=== PATIENT | male | born 1965 | race Two or more races ===

== ENCOUNTER 2020-12-18 17:28 | Inpatient (IN) | payer OTHER ==
[~2020-12-18] VITALS: Ht 175.3 cm; Wt 75.9 kg
[2020-12-18] MEDS ORDERED: IV NORMAL SALINE 1000ML BAG 1,000 ML IV ONE (18:30)
--- NOTE | 2020-12-18 18:39 | PHYS DOC ---
Past Medical History Past Medical History: No Pertinent History Past Surgical History: No Surgical History Smoking Status: Never Smoker Alcohol Use: None Drug Use: None General Adult EDM: Chief Complaint: SYNCOPE HPI: HPI: Patient is a 55 year old male who presents to the ED complaining of syncopal episode that occurred today at 7 AM. Patient reports that he had dizziness, lightheadedness, and mild blurred vision and sat down in a chair before he lost consciousness briefly. 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 Patient did not fall or hit his head. After the episode the patient left work and went home and drove by himself to the ED today. Patient does not reports any known medical problems and does not take any current medications. Patient denies chest pain, shortness of breath, fever, or chills. Patient does report that he has had a cough for the last week, but denies any exposure to COVID-19 recently. Patient does report he has tested positive in the past (end of October). Patient denies any tobacco use, alcohol use, or illicit drug use. Review of Systems: Review of Systems: Constitutional: Denies fever or chills Eyes: Denies redness or eye pain HENT: Denies nasal congestion or sore throat Respiratory: Reports cough; denies shortness of breath Cardiovascular: Denies chest pain or palpitations GI: Denies abdominal pain, nausea, or vomiting : Denies dysuria or hematuria Musculoskeletal: Denies back pain or joint pain Integument: Denies rash or skin lesions Neurologic: Denies headache, focal weakness or sensory changes; reports syncopal episode Complete systems were reviewed and found to be within normal limits, except as d ocumented in this note. Current Medications: Current Medications Medications (Trade) Dose Ordered Sig/Ximena Start Time Stop Time Status Last Admin Dose Admin Sodium Chloride 1,000 ml @ 1,000 mls/hr 1X ONCE 12/18/20 18:30 12/18/20 19:29 UNV Physical Exam: PE: Constitutional: Well developed, well nourished, no acute distress, non-toxic appearance HENT: Normocephalic, atraumatic Eyes: PERRL, EOMI, conjunctiva normal, no discharge, no nystagmus Neck: Normal range of motion, no tenderness, supple Lungs & Thorax: No respiratory distress, equal chest rise and fall Abdomen: Soft, no tenderness Skin: Warm, dry, no erythema, no rash Extremities: No tenderness, ROM intact, no edema Neurologic: Alert and oriented X 3, normal motor function, normal sensory function, no focal deficits noted Psychologic: Affect normal, judgment normal EKG: EKG: December 18, 2020 1824, normal sinus rhythm heart rate of 63, J-point elevation noted, no STEMI, QRS 78, QT/QTc 414/427. Compared with EKG from December 18, 2020 at 1708. No significant changes. [] Radiology/Procedures: Radiology/Procedures: PROCEDURE: CT HEAD WO CONTRAST STUDY: CT head without contrast INDICATION: Syncope. COMPARISON: None. TECHNIQUE: Axial CT imaging through the head without the use of intravenous contrast. Sagittal and coronal reformats were obtained. One or more of the following individualized dose reduction techniques were utilized for this examination: 1. Automated exposure control 2. Adjustment of the mA and/or kV according to patient size 3. Use of iterative reconstruction technique. FINDINGS: No acute intracranial hemorrhage. No mass effect, midline shift or hydrocephalus. Toney-white matter differentiation is maintained. Unremarkable calvarium. No layering fluid seen within the visualized paranasal sinuses. Unremarkable mastoid air cells and middle ears. IMPRESSION: No acute intracranial abnormality by CT. Electronically signed by: BLADE GASCA MD (12/18/2020 7:11 PM) [facility] []PROCEDURE: CHEST AP ONLY Exam: Chest one view INDICATION: Syncope, cough TECHNIQUE: Frontal view of the chest Comparisons: None FINDINGS: The cardiomediastinal silhouette and pulmonary vessels are within normal limits. Subtle hazy bibasilar airspace disease. No pleural effusion. IMPRESSION: Subtle bibasilar airspace disease may relate to atelectasis or developing infectious process. Electronically signed by: Chadwick Odonnell MD (12/18/2020 7:33 PM) [facility] PROCEDURE: CT ANGIOGRAPHY CHEST Exam: CT of chest with contrast INDICATION: Short of air, cough TECHNIQUE: Sequential axial images through the chest obtained following the administration of 100 mL of Isovue-370 IV contrast. Sagittal and coronal reformatted images were reconstructed from the axial data and reviewed. 3-D reformatted images were reconstructed from the axial data and reviewed. Comparisons: Chest x-ray same day FINDINGS: Visual is portions of the thyroid are unremarkable. No enlarged mediastinal lymph nodes. Heart size is normal. No pericardial effusion. Thoracic aorta has a normal course and caliber. Pulmonary artery is not enlarged. No pulmonary embolus identified within the main, lobar or segmental pulmonary arteries. Airways are patent. No consolidation or pneumothorax. Strandy opacities at dependent portion lungs likely representing atelectasis. No pleural effusion or thickening. Visualized upper abdomen is unremarkable. No suspicious osseous lesions or acute fractures. IMPRESSION: No pulmonary embolus within the main, lobar or segmental pulmonary arteries. Exposure: One or more of the following in the visualized dose reduction techniques were utilized for this examination: 1. Automated exposure control 2. Adjustment of the MA and/or KV according to patient size 3. Use of iterative of reconstructive technique Electronically signed by: Chadwick Odonnell MD (12/18/2020 10:17 PM) [facility] Course & Med Decision Making: Course & Med Decision Making Patient is a 55 year old male who presents to the ED complaining of syncopal episode that occurred today at 7 AM. Patient reports that he had syncopal episode he had dizziness, lightheadedness, and mild blurred vision and sat down in a chair before he lost consciousness briefly. Patient's labs are significant for D-dimer slightly elevated at 0.54 all other labs are unremarkable. Due to the patient's elevated D-dimer and past history of COVID-19, CT angio was ordered in order to rule out PE or other acute pulmonary process. Patient EKG stable. Patient CT head was negative and patient's chest x-ray showed bibasilar opacities which could indicate atelectasis or underlying infection. CT angio showed no pulmonary embolism or other acute pathology. Patient requiring admission for further evaluation and treatment. Discussed with Dr. Looney (hospitalist) who is in agreement with admission. Discussed findings and plan with patient and family, who acknowledge understanding and agreement. Dragon Disclaimer: Marc Disclaimer: This electronic medical record was generated, in whole or in part, using a voice recognition dictation system. Departure Departure Impression: Primary Impression: Syncope Qualified Codes: R55 - Syncope and collapse Additional Impression: Elevated d-dimer Disposition: 09 ADMITTED INPT THIS HOSP Admitting Physician: MARIANNE (Aayush) Condition: STABLE Referrals: NON,STAFF (PCP) SIENNA ADDISON DO Dec 18, 2020 18:39
--- NOTE | 2020-12-18 18:44 | EKG ---
[facility] [address] [place] [address] Test Date: 2020-12-18 Test Time: 18:21:45 Pat Name: KOREY RUDOLPH Department: Room: Gender: M Real Estate Manager: : 1965 Requested By: SIENNA ADDISON Order Number: [id number] Reading MD: Measurements Intervals [place] Rate: 63 P: -22 LA: 142 QRS: 3 QRSD: 78 T: 38 QT: 414 QTc: 427 Interpretive Statements SINUS RHYTHM OTHERWISE NORMAL ECG RI6.02 No previous ECG available for comparison
[2020-12-18 18:57] LABS: BASO % 0 % (0-3); EOS # 0.1 x10^3/uL (0.0-0.7); EOS % 2 % (0-3); HEMATOCRIT 44.4 % (39.0-53.0); HEMOGLOBIN 15.3 g/dL (13.0-17.5); LYMPH # 1.5 x10^3/uL (1.0-4.8); LYMPH % 30 % (24-48); MEAN CORPUSCULAR HEMOGLOBIN 32 pg (25-35); MEAN CORPUSCULAR HGB CONC 34 g/dL (31-37); MEAN CORPUSCULAR VOLUME 93 fL (79-100); MONO # 0.3 x10^3/uL (0.0-1.1); MONO % 6 % (0-9); NEUT % 61 % (31-73); PLATELET COUNT 144 x10^3/uL (140-400); RED BLOOD COUNT 4.78 x10^6/uL (4.30-5.70); RED CELL DISTRIBUTION WIDTH 13.7 % (11.5-14.5); WHITE BLOOD COUNT 4.9 x10^3/uL (4.0-11.0)
[2020-12-18 19:04] LABS: CALCIUM 8.4 mg/dL (8.5-10.1); CREATININE 0.9 mg/dL (0.7-1.3); GFR 88.3; POTASSIUM 3.6 mmol/L (3.5-5.1)
[2020-12-18 19:09] LABS: ALBUMIN 4.1 g/dL (3.4-5.0); ALBUMIN/GLOBULIN RATIO 1.1 (1.0-1.7); TOTAL BILIRUBIN 0.7 mg/dL (0.2-1.0); TOTAL PROTEIN 7.9 g/dL (6.4-8.2)
--- NOTE | 2020-12-18 19:14 | RAD ---
STUDY: CT head without contrast INDICATION: Syncope. COMPARISON: None. TECHNIQUE: Axial CT imaging through the head without the use of intravenous contrast. Sagittal and co francis reformats were obtained. One or more of the following individualized dose reduction techniques were utilized for this examinat ion: 1. Automated exposure control 2. Adjustment of the mA and/or kV according to patient size 3. Use of iterative reconstruction technique. FINDINGS: No acute intracranial hemorrhage. No mass effect, midline shift or hydrocephalus. Toney-white matter d ifferentiation is maintained. Unremarkable calvarium. No layering fluid seen within the visualized paranasal sinuses. Unremarkable mastoid air cells and middle ears. IMPRESSION: No acute intracranial abnormality by CT. Electronically signed by: BLADE GASCA MD (12/18/2020 7:11 PM) [facility]
[2020-12-18 19:20] LABS: CREATINE KINASE 168 U/L (39-308)
--- NOTE | 2020-12-18 19:35 | RAD ---
Exam: Chest one view INDICATION: Syncope, cough TECHNIQUE: Frontal view of the chest Comparisons: None FINDINGS: The cardiomediastinal silhouette and pulmonary vessels are within normal limits. Subtle hazy bibasilar airspace disease. No pleural effusion. IMPRESSION: Subtle bibasilar airspace disease may relate to atelectasis or developing infectious process. Electronically signed by: Chadwick Odonnell MD (12/18/2020 7:33 PM) [facility]
[2020-12-18] MEDS ORDERED: ASPIRIN ENTERIC COATED 325 MG TABLET.DR. PO ONE (19:45)
[2020-12-18 19:52] LABS: PROTHROMBIN TIME PATIENT 13.1 SEC (11.7-14.0)
[2020-12-18 20:28] LABS: D-DIMER 0.54 ug/mlFEU (0.00-0.50)
[2020-12-18] MEDS ORDERED: CONTRAST GIVEN. MC PRN (22:00)
--- NOTE | 2020-12-18 22:19 | RAD ---
Exam: CT of chest with contrast INDICATION: Short of air, cough TECHNIQUE: Sequential axial images through the chest obtained following the administration of 100 mL of Isovue-370 IV contrast. Sagittal and coronal reformatted images were reconstructed from the axial data and reviewed. 3-D reformatted images were reconstructed from the axial data and reviewed. Comparisons: Chest x-ray same day FINDINGS: Visual is portions of the thyroid are unremarkable. No enlarged mediastinal lymph nodes. Heart size is normal. No pericardial effusion. Thoracic aorta has a normal course and caliber. Pulmon bryon artery is not enlarged. No pulmonary embolus identified within the main, lobar or segmental pulmo nary arteries. Airways are patent. No consolidation or pneumothorax. Strandy opacities at dependent portion lungs li ana representing atelectasis. No pleural effusion or thickening. Visualized upper abdomen is unremarkable. No suspicious osseous lesions or acute fractures. IMPRESSION: No pulmonary embolus within the main, lobar or segmental pulmonary arteries. Exposure: One or more of the following in the visualized dose reduction techniques were utilized for this examination: 1. Automated exposure control 2. Adjustment of the MA and/or KV according to patient size 3. Use of iterative of reconstructive technique Electronically signed by: Chadwick Odonnell MD (12/18/2020 10:17 PM) [facility]
[2020-12-18] MEDS ORDERED: IOHEXOL 350 MG/ML 100 ML VIAL. IV ONE (22:30)
[2020-12-18 23:01] LABS: BILIRUBIN,URINE NEGATIVE (NEG); COLOR,URINE YELLOW; NITRITE,URINE NEGATIVE (NEG); PH,URINE 6.5 (<5.0-8.0); PROTEIN,URINE NEGATIVE (NEG-TRACE)
[2020-12-18 23:07] LABS: BACTERIA,URINE 0 /HPF (0-FEW); CLARITY,URINE CLEAR; RBC,URINE 0 /HPF (0-2); WBC,URINE 0 /HPF (0-4)
[2020-12-18 23:20] VITALS: BP 120/76
[2020-12-19] VITALS (8 sets, daily range): BP systolic 108–122; BP diastolic 58–79
[2020-12-19] MEDS ORDERED: NO HOME MEDS (03:12)
--- NOTE | 2020-12-19 08:26 | PDOC1 ---
History and Physical Date of Admission Date of Admission DATE: 12/19/20 TIME: 08:22 Source Source: Chart review, Patient History of Present Illness History of Present Illness Mr. Perez, is a 55 year old male, Citizen Of [place] patient, not turkish speaker. admit overnight after syncope at work 7 AM yesterday.. Patient reports that he had dizziness, lightheadedness, and mild blurred vision and sat down in a chair before he lost consciousness briefly. 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 d. Patient did not fall or hit his head, but he patient left work and went home and drove himself to the ED. He has no prior medical history prior to COVID infection. some ongoing weakness and cough, he feels better than yesterday Past Medical History Cardiovascular: No pertinent hx Pulmonary: No pertinent hx GI: No pertinent hx Heme/Onc: No pertinent hx Infectious disease: Other (COVID) Past Surgical History Past Surgical History: No pertinent history Family History Family History: No Significant Social History Smoke: No ALCOHOL: none Drugs: None Current Problem List Problem List Problems Medical Problems: (1) Elevated d-dimer Status: Acute (2) Syncope Status: Acute Current Medications Current Medications Current Medications Sodium Chloride 1,000 ml @ 1,000 mls/hr 1X ONCE IV Last administered on 12/18/20at 18:50; Start 12/18/20 at 18:30; Stop 12/18/20 at 19:29; Status DC Aspirin (Ecotrin) 325 mg 1X ONCE PO Last administered on 12/18/20at 20:15; Start 12/18/20 at 19:45; Stop 12/18/20 at 19:46; Status DC Iohexol (Omnipaque 350 Mg/ml) 100 ml 1X ONCE IV Last administered on 12/18/20at 22:06; Start 12/18/20 at 22:30; Stop 12/18/20 at 22:31; Status DC Info (CONTRAST GIVEN -- Rx MONITORING) 1 each PRN DAILY PRN MC SEE COMMENTS; Start 12/18/20 at 22:00; Stop 12/20/20 at 21:59 Active Scripts Active Reported [No Home Meds] Allergies Allergies: Coded Allergies: No Known Drug Allergies (Unverified , 12/18/20) ROS General: YES: Chills, Fatigue; No: Night Sweats, Malaise, Appetite, Other PSYCHOLOGICAL ROS: No: Anxiety, Behavioral Disorder, Concentration difficultie, Decreased libido, Depression, Disorientation, Hallucinations, Hostility, Irritablity, Memory difficulties, Mood Swings, Obsessive thoughts, Physical abuse, Sexual abuse, Sleep disturbances, Suicidal ideation, Other Eyes: No Blurry vision, No Decreased vision, No Double vision, No Dry eyes, No Excessive tearing, No Eye Pain, No Itchy Eyes, No Loss of vision, No Photophobia, No Scotomata, No Uses contacts, No Uses glasses, No Other HEENT: YES: Heacaches; No: Visual Changes, Hearing change, Nasal congestion, Nasal discharge, Oral lesions, Sinus pain, Sore Throat, Epistaxis, Sneezing, Snoring, Tinnitus, Vertigo, Vocal changes, Other Respiratory: YES: Cough; No: Hemoptysis, Orthopnea, Pleuritic Pain, Shortness of breath, SOB with excertion, Sputum Changes, Stridor, Tachypnea, Wheezing, Other Cardiovascular: No Chest Pain, No Palpitations, No Orthopnea, No Paroxysmal Noc. Dyspnea, No Edema, No Lt Headedness, No Other Gastrointestinal: No Nausea, No Vomiting, No Abdominal Pain, No Diarrhea, No Constipation, No Melena, No Hematochezia, No Other Genitourinary: No Dysuria, No Frequency, No Incontinence, No Hematuria, No Retention, No Discharge, No Urgency, No Pain, No Flank Pain, No Other, No , No , No , No , No , No , No Musculoskeletal: Yes Muscular Weakness (below baseline last few weeks); No Gait Disturbance, No Joint Pain, No Joint Stiffness, No Joint Swelling, No Muscle Pain, No Pain In:, No Swelling In:, No Other Neurological: No Behavorial Changes, No Bowel/Bladder ControlChng, No Confusion, No Dizziness, No Gait Disturbance, No Headaches, No Impaired Coord/balance, No Memory Loss, No Numbness/Tingling, No Seizures, No Speech Problems, No Tremors, No Visual Changes, No Weakness, No Other Skin: No Dry Skin, No Eczema, No Hair Changes, No Lumps, No Mole Changes, No Mottling, No Nail Changes, No Pruritus, No Rash, No Skin Lesion Changes, No Other, No Acne Physical Exam General: Alert, Oriented X3, Cooperative, No acute distress HEENT: Atraumatic Lungs: Clear to auscultation Abdomen: Soft Extremities: No clubbing, Normal pulses Skin: No rashes, No significant lesion Neuro: Normal speech, Sensation intact, Cranial nerves 3-12 NL Psych/Mental Status: Mental status NL, Mood NL Vitals Vitals Vital Signs Date Time Temp Pulse Resp B/P (MAP) Pulse Ox O2 Delivery O2 Flow Rate FiO2 12/19/20 07:00 97.4 74 17 113/79 (90) 97 Room Air 97.4 Labs Labs Laboratory Tests Test 12/18/20 18:38 12/18/20 22:53 White Blood Count 4.9 x10^3/uL (4.0-11.0) Red Blood Count 4.78 x10^6/uL (4.30-5.70) Hemoglobin 15.3 g/dL (13.0-17.5) Hematocrit 44.4 % (39.0-53.0) Mean Corpuscular Volume 93 fL (79-100) Mean Corpuscular Hemoglobin 32 pg (25-35) Mean Corpuscular Hemoglobin Concent 34 g/dL (31-37) Red Cell Distribution Width 13.7 % (11.5-14.5) Platelet Count 144 x10^3/uL (140-400) Neutrophils (%) (Auto) 61 % (31-73) Lymphocytes (%) (Auto) 30 % (24-48) Monocytes (%) (Auto) 6 % (0-9) Eosinophils (%) (Auto) 2 % (0-3) Basophils (%) (Auto) 0 % (0-3) Neutrophils # (Auto) 3.0 x10^3/uL (1.8-7.7) Lymphocytes # (Auto) 1.5 x10^3/uL (1.0-4.8) Monocytes # (Auto) 0.3 x10^3/uL (0.0-1.1) Eosinophils # (Auto) 0.1 x10^3/uL (0.0-0.7) Basophils # (Auto) 0.0 x10^3/uL (0.0-0.2) Prothrombin Time 13.1 SEC (11.7-14.0) Prothromb Time International Ratio 1.0 (0.8-1.1) Activated Partial Thromboplast Time 30 SEC (24-38) D-Dimer ([place]orence) 0.54 ug/mlFEU (0.00-0.50) Sodium Level 143 mmol/L (136-145) Potassium Level 3.6 mmol/L (3.5-5.1) Chloride Level 105 mmol/L (98-107) Carbon Dioxide Level 30 mmol/L (21-32) Anion Gap 8 (6-14) Blood Urea Nitrogen 9 mg/dL (8-26) Creatinine 0.9 mg/dL (0.7-1.3) Estimated GFR (Cockcroft-Gault) 88.3 BUN/Creatinine Ratio 10 (6-20) Glucose Level 96 mg/dL (70-99) Calcium Level 8.4 mg/dL (8.5-10.1) Magnesium Level 2.0 mg/dL (1.8-2.4) Total Bilirubin 0.7 mg/dL (0.2-1.0) Aspartate Amino Transf (AST/SGOT) 19 U/L (15-37) Alanine Aminotransferase (ALT/SGPT) 36 U/L (16-63) Alkaline Phosphatase 62 U/L (46-116) Creatine Kinase 168 U/L (39-308) Creatine Kinase MB (Mass) < 0.5 ng/mL (0.0-3.6) Creatine Kinase MB Relative Index % (0-4) Troponin I Quantitative < 0.017 ng/mL (0.000-0.055) Total Protein 7.9 g/dL (6.4-8.2) Albumin 4.1 g/dL (3.4-5.0) Albumin/Globulin Ratio 1.1 (1.0-1.7) Urine Collection Type Unknown Urine Color Yellow Urine Clarity Clear Urine pH 6.5 (<5.0-8.0) Urine Specific [place] 1.015 (1.000-1.030) Urine Protein Negative mg/dL (NEG-TRACE) Urine Glucose (UA) Negative mg/dL (NEG) Urine Ketones (Stick) Negative mg/dL (NEG) Urine Blood Negative (NEG) Urine Nitrite Negative (NEG) Urine Bilirubin Negative (NEG) Urine Urobilinogen Dipstick 1.0 mg/dL (0.2 mg/dL) Urine Leukocyte Esterase Negative (NEG) Urine RBC 0 /HPF (0-2) Urine WBC 0 /HPF (0-4) Urine Bacteria 0 /HPF (0-FEW) Urine Mucus Slight /LPF Laboratory Tests Test 12/18/20 18:38 12/18/20 22:53 White Blood Count 4.9 x10^3/uL (4.0-11.0) Red Blood Count 4.78 x10^6/uL (4.30-5.70) Hemoglobin 15.3 g/dL (13.0-17.5) Hematocrit 44.4 % (39.0-53.0) Mean Corpuscular Volume 93 fL (79-100) Mean Corpuscular Hemoglobin 32 pg (25-35) Mean Corpuscular Hemoglobin Concent 34 g/dL (31-37) Red Cell Distribution Width 13.7 % (11.5-14.5) Platelet Count 144 x10^3/uL (140-400) Neutrophils (%) (Auto) 61 % (31-73) Lymphocytes (%) (Auto) 30 % (24-48) Monocytes (%) (Auto) 6 % (0-9) Eosinophils (%) (Auto) 2 % (0-3) Basophils (%) (Auto) 0 % (0-3) Neutrophils # (Auto) 3.0 x10^3/uL (1.8-7.7) Lymphocytes # (Auto) 1.5 x10^3/uL (1.0-4.8) Monocytes # (Auto) 0.3 x10^3/uL (0.0-1.1) Eosinophils # (Auto) 0.1 x10^3/uL (0.0-0.7) Basophils # (Auto) 0.0 x10^3/uL (0.0-0.2) Prothrombin Time 13.1 SEC (11.7-14.0) Prothromb Time International Ratio 1.0 (0.8-1.1) Activated Partial Thromboplast Time 30 SEC (24-38) D-Dimer ([place]) 0.54 ug/mlFEU (0.00-0.50) Sodium Level 143 mmol/L (136-145) Potassium Level 3.6 mmol/L (3.5-5.1) Chloride Level 105 mmol/L (98-107) Carbon Dioxide Level 30 mmol/L (21-32) Anion Gap 8 (6-14) Blood Urea Nitrogen 9 mg/dL (8-26) Creatinine 0.9 mg/dL (0.7-1.3) Estimated GFR (Cockcroft-Gault) 88.3 BUN/Creatinine Ratio 10 (6-20) Glucose Level 96 mg/dL (70-99) Calcium Level 8.4 mg/dL (8.5-10.1) Magnesium Level 2.0 mg/dL (1.8-2.4) Total Bilirubin 0.7 mg/dL (0.2-1.0) Aspartate Amino Transf (AST/SGOT) 19 U/L (15-37) Alanine Aminotransferase (ALT/SGPT) 36 U/L (16-63) Alkaline Phosphatase 62 U/L (46-116) Creatine Kinase 168 U/L (39-308) Creatine Kinase MB (Mass) < 0.5 ng/mL (0.0-3.6) Creatine Kinase MB Relative Index % (0-4) Troponin I Quantitative < 0.017 ng/mL (0.000-0.055) Total Protein 7.9 g/dL (6.4-8.2) Albumin 4.1 g/dL (3.4-5.0) Albumin/Globulin Ratio 1.1 (1.0-1.7) Urine Collection Type Unknown Urine Color Yellow Urine Clarity Clear Urine pH 6.5 (<5.0-8.0) Urine Specific [place] 1.015 (1.000-1.030) Urine Protein Negative mg/dL (NEG-TRACE) Urine Glucose (UA) Negative mg/dL (NEG) Urine Ketones (Stick) Negative mg/dL (NEG) Urine Blood Negative (NEG) Urine Nitrite Negative (NEG) Urine Bilirubin Negative (NEG) Urine Urobilinogen Dipstick 1.0 mg/dL (0.2 mg/dL) Urine Leukocyte Esterase Negative (NEG) Urine RBC 0 /HPF (0-2) Urine WBC 0 /HPF (0-4) Urine Bacteria 0 /HPF (0-FEW) Urine Mucus Slight /LPF VTE Prophylaxis Ordered VTE Prophylaxis Devices: No VTE Pharmacological Prophylaxi: Yes Assessment/Plan Assessment/Plan syncope, r.o cardiogenic on tele 23 hours Prior COVID infection, still having weakness, cough symptoms, may need echo, CV consulted symptoms consistent with "long hauler" COVID at this time, he asked for more time off work, replace potassium to 4.0, labs OK Justifications for Admission Other Justification ERIN GARCIAS MD Dec 19, 2020 08:26
[2020-12-19] MEDS ORDERED: POTASSIUM CHLORIDE 20 MEQ TABLET.ER. PO ONE (08:30)
[2020-12-19] MEDS: ZINC SULFATE 220 MG CAPSULE. PO SCH (09:03)
[2020-12-19] MEDS: CHOLECALCIFEROL (VITAMIN D3) 5,000 UNIT CAPSULE PO SCH (09:03)
[2020-12-19] MEDS: guaiFENesin/CODEINE 100mg/10mg 5 ML LIQUID PO PRN ×2 (09:03→16:38)
[2020-12-19] MEDS: ENOXAPARIN 40 MG/0.4 ML SYRINGE. SQ SCH (09:03)
[2020-12-19] MEDS: ASCORBIC ACID 1,000 MG TABLET PO SCH (09:03)
--- NOTE | 2020-12-19 11:12 | PDOC2 ---
CARDIAC CONSULT DATE OF CONSULT Date of Consult DATE: 12/19/20 TIME: 11:07 REASON FOR CONSULT Reason for Consult: syncope REFERRING PHYSICIAN Referring Physician: Dr. Looney SOURCE Source: Chart review, Patient HISTORY OF PRESENT ILLNESS HISTORY OF PRESENT ILLNESS This is a 55 yo male who presented secondary to syncopal episode. [employer] line utilized for visit. Patient reports having COVID at the end of October. Sin ce then, has not been able to tolerate cold temperatures very well. Has also had persistent dry cough since then. Yesterday, patient reports it was very cold at work. Was coughing a lot. Began feeling lightheaded/dizzy. Sat down and then subsequently lost consciousness for approximately 1 minute. He denies any chest pain, palpitations, diaphoresis, or nausea/vomiting. PAST MEDICAL HISTORY Cardiovascular: No pertinent hx Pulmonary: No pertinent hx GI: No pertinent hx Heme/Onc: No pertinent hx Renal/: No pertinent hx Endocrine: No pertinent hx PAST SURGICAL HISTORY Past Surgical History: No pertinent history FAMILY HISTORY Family History: Other (noncontributory ) SOCIAL HISTORY Smoke: No ALCOHOL: none Drugs: None Lives: with Family CURRENT MEDICATIONS CURRENT MEDICATIONS Current Medications Medications (Trade) Dose Ordered Sig/Ximena Route PRN Reason Start Time Stop Time Status Last Admin Dose Admin Sodium Chloride 1,000 ml @ 1,000 mls/hr 1X ONCE IV 12/18/20 18:30 12/18/20 19:29 DC 12/18/20 18:50 Aspirin (Ecotrin) 325 mg 1X ONCE PO 12/18/20 19:45 12/18/20 19:46 DC 12/18/20 20:15 Iohexol (Omnipaque 350 Mg/ml) 100 ml 1X ONCE IV 12/18/20 22:30 12/18/20 22:31 DC 12/18/20 22:06 Potassium Chloride (Klor-Con) 40 meq 1X ONCE PO 12/19/20 08:30 12/19/20 08:31 DC 12/19/20 09:02 Zinc Sulfate (Orazinc) 220 mg DAILY PO 12/19/20 09:00 12/19/20 09:03 Ascorbic Acid (Vitamin C) 1,000 mg DAILY PO 12/19/20 09:00 12/19/20 09:03 Vitamin D (Vitamin D3) 5,000 unit DAILY PO 12/19/20 09:00 12/19/20 09:03 Guaifenesin/ Codeine Phosphate (Robitussin Ac) 5 ml PRN Q6HRS PRN PO COUGH 12/19/20 08:45 12/19/20 09:03 Enoxaparin Sodium (Lovenox 40mg Syringe) 40 mg Q24H SQ 12/19/20 09:00 12/19/20 09:03 ALLERGIES ALLERGIES: Coded Allergies: No Known Drug Allergies (Unverified , 12/18/20) ROS Review of System 14 point ROS conducted with pertinent positives noted above in hPI PHYSICAL EXAM General: Alert, Oriented X3, Cooperative, No acute distress HEENT: Atraumatic, Mucous membr. moist/pink Lungs: Clear to auscultation Heart: Regular rate Abdomen: Soft, No tenderness Extremities: No edema, Normal pulses Skin: No significant lesion Neuro: Normal speech, Sensation intact Psych/Mental Status: Mental status NL, Mood NL MUSCULOSKELETAL: Osteoarthritic changes both hands VITALS/I&O VITALS/I&O: Vital Signs Date Time Temp Pulse Resp B/P (MAP) Pulse Ox O2 Delivery O2 Flow Rate FiO2 12/19/20 07:00 97.4 74 17 113/79 (90) 97 Room Air 97.4 I & O 12/18/20 12/18/20 12/19/20 15:00 23:00 07:00 Intake Total 1000 ml 240 ml Balance 1000 ml 240 ml LABS Lab: Laboratory Tests Test 12/18/20 18:38 12/18/20 22:53 White Blood Count 4.9 x10^3/uL (4.0-11.0) Red Blood Count 4.78 x10^6/uL (4.30-5.70) Hemoglobin 15.3 g/dL (13.0-17.5) Hematocrit 44.4 % (39.0-53.0) Mean Corpuscular Volume 93 fL (79-100) Mean Corpuscular Hemoglobin 32 pg (25-35) Mean Corpuscular Hemoglobin Concent 34 g/dL (31-37) Red Cell Distribution Width 13.7 % (11.5-14.5) Platelet Count 144 x10^3/uL (140-400) Neutrophils (%) (Auto) 61 % (31-73) Lymphocytes (%) (Auto) 30 % (24-48) Monocytes (%) (Auto) 6 % (0-9) Eosinophils (%) (Auto) 2 % (0-3) Basophils (%) (Auto) 0 % (0-3) Neutrophils # (Auto) 3.0 x10^3/uL (1.8-7.7) Lymphocytes # (Auto) 1.5 x10^3/uL (1.0-4.8) Monocytes # (Auto) 0.3 x10^3/uL (0.0-1.1) Eosinophils # (Auto) 0.1 x10^3/uL (0.0-0.7) Basophils # (Auto) 0.0 x10^3/uL (0.0-0.2) Prothrombin Time 13.1 SEC (11.7-14.0) Prothrombin Time INR 1.0 (0.8-1.1) Activated Partial Thromboplast Time 30 SEC (24-38) D-Dimer ([place]) 0.54 ug/mlFEU (0.00-0.50) H Sodium Level 143 mmol/L (136-145) Potassium Level 3.6 mmol/L (3.5-5.1) Chloride Level 105 mmol/L (98-107) Carbon Dioxide Level 30 mmol/L (21-32) Anion Gap 8 (6-14) Blood Urea Nitrogen 9 mg/dL (8-26) Creatinine 0.9 mg/dL (0.7-1.3) Estimated GFR (Cockcroft-Gault) 88.3 BUN/Creatinine Ratio 10 (6-20) Glucose Level 96 mg/dL (70-99) Calcium Level 8.4 mg/dL (8.5-10.1) L Magnesium Level 2.0 mg/dL (1.8-2.4) Total Bilirubin 0.7 mg/dL (0.2-1.0) Aspartate Amino Transferase (AST) 19 U/L (15-37) Alanine Aminotransferase (ALT) 36 U/L (16-63) Alkaline Phosphatase 62 U/L (46-116) Creatine Kinase 168 U/L (39-308) Creatine Kinase MB (Mass) < 0.5 ng/mL (0.0-3.6) Creatine Kinase MB Relative Index % (0-4) Troponin I Quantitative < 0.017 ng/mL (0.000-0.055) Total Protein 7.9 g/dL (6.4-8.2) Albumin 4.1 g/dL (3.4-5.0) Albumin/Globulin Ratio 1.1 (1.0-1.7) Urine Collection Type Unknown Urine Color Yellow Urine Clarity Clear Urine pH 6.5 (<5.0-8.0) Urine Specific [place] 1.015 (1.000-1.030) Urine Protein Negative mg/dL (NEG-TRACE) Urine Glucose (UA) Negative mg/dL (NEG) Urine Ketones (Stick) Negative mg/dL (NEG) Urine Blood Negative (NEG) Urine Nitrite Negative (NEG) Urine Bilirubin Negative (NEG) Urine Urobilinogen Dipstick 1.0 mg/dL (0.2 mg/dL) Urine Leukocyte Esterase Negative (NEG) Urine RBC 0 /HPF (0-2) Urine WBC 0 /HPF (0-4) Urine Bacteria 0 /HPF (0-FEW) Urine Mucus Slight /LPF Laboratory Tests 12/18/20 18:38 Laboratory Tests 12/18/20 18:38 ASSESSMENT/PLAN ASSESSMENT/PLAN 1. Syncope; no acute event on tele overnight. EKG shows SR with early repolarization. No clear cardiac source 2. Recent COVID with persistent dry cough and weakness Recommendations Orthos Echo to assess LV systolic function, r/o cardiac anomaly Supportive care Further pending above RAMÍREZ COOPER APRN Dec 19, 2020 11:11
--- NOTE | 2020-12-19 15:25 | CARD ---
MR#: [id number] Date of Study: 12/19/2020 Ordering Physician: RAMÍREZ COOPER, Referring Physician: RAMÍREZ COOPER, Tech: Dianna De Dios [facility] APPROVED REPORT EXAM: Two-dimensional and M-mode echocardiogram with Doppler and color Doppler. Other Information Quality : Good INDICATION Syncope 2D DIMENSIONS RVDd2.9 (2.9-3.5cm)Left Atrium(2D)3.1 (1.6-4.0cm) IVSd0.9 (0.7-1.1cm)Aortic Root(2D)3.2 (2.0-3.7cm) LVDd4.6 (3.9-5.9cm)LVOT Diameter2.0 (1.8-2.4cm) PWd0.8 (0.7-1.1cm)LVDs3.4 (2.5-4.0cm) FS (%) 25.7 %SV48.6 ml LVEF(%)55.0 (>50%) Aortic Valve AoV Peak Sage.107.6cm/sAoV VTI19.0cm AO Peak GR.4.6mmHgLVOT Peak Sage.89.5cm/s LVOT VTI 17.80cmAO Mean GR.3mmHg PARUL (VMAX)2.35dd6OKP (VTI)2.90cm2 AI P 1/2 Yqkg0326tc Mitral Valve MV E Aurttiqs61.5cm/sMV DECEL [id number] MV A Jwamgggb28.1cm/sMV TXT60so E/A Ratio0.7MVA (PHT)2.82cm2 TDI E/Lateral E'3.2E/Medial E'7.1 Tricuspid Valve TR P. Kdjyjrbr735fp/sRAP RSSXQJEH1xpCy TR Peak Gr.68zlVbXHOS02yyLe Pulmonary Vein S1 Tcgtlvgb98.1cm/sD2 Rcmnqjwe65.5cm/s LEFT VENTRICLE The left ventricle is normal size. There is normal left ventricular wall thickness. The left ventricu lar systolic function is normal. The Ejection Fraction is 55-60%. There is normal LV segmental wall m otion. Transmitral Doppler flow pattern is Grade I-abnormal relaxation pattern. RIGHT VENTRICLE The right ventricle is normal size. The right ventricular systolic function is normal. ATRIA The left atrium size is normal. The right atrium size is normal. The interatrial septum is intact wit h no evidence for an atrial septal defect or patent foramen ovale as noted on 2-D or Doppler imaging. AORTIC VALVE The aortic valve is normal in structure and function. Doppler and Color Flow revealed no significant aortic regurgitation. There is no significant aortic valvular stenosis. MITRAL VALVE The mitral valve is normal in structure and function. There is no evidence of mitral valve prolapse. There is no mitral valve stenosis. Doppler and Color Flow revealed no mitral valve regurgitation note d. TRICUSPID VALVE The tricuspid valve is normal in structure and function. Doppler and Color Flow revealed trace to mil d tricuspid regurgitation. The PA pressure was estimated at 25 mmHg. There is no tricuspid valve sten osis. PULMONIC VALVE The pulmonary valve is normal in structure and function. Doppler and Color Flow revealed mild pulmoni c valvular regurgitation. There is no pulmonic valvular stenosis. GREAT VESSELS The aortic root is normal in size. The ascending aorta is dilated at 3.9 cm. The IVC is normal in siz e and collapses >50% with inspiration. PERICARDIAL EFFUSION There is no evidence of significant pericardial effusion. Critical Notification Critical Value: No <Conclusion> The left ventricular systolic function is normal. The Ejection Fraction is 55-60%. There is normal LV segmental wall motion. Transmitral Doppler flow pattern is Grade I-abnormal relaxation pattern. Trace to mild tricuspid regurgitation. The PA pressure was estimated at 25 mmHg. The ascending aorta is dilated at 3.9 cm. There is no evidence of significant pericardial effusion. Signed by : Raymond Solis, Electronically Approved : 12/19/2020 15:24:58
[2020-12-20 07:00] VITALS: BP 112/59
[2020-12-20] MEDS ORDERED: GUAI120L35 PO (08:10)
[2020-12-20] MEDS: CHOLECALCIFEROL (VITAMIN D3) 5,000 UNIT CAPSULE PO SCH (08:14)
[2020-12-20] MEDS: ZINC SULFATE 220 MG CAPSULE. PO SCH (08:14)
[2020-12-20] MEDS: ASCORBIC ACID 1,000 MG TABLET PO SCH (08:14)
[2020-12-20] MEDS: ENOXAPARIN 40 MG/0.4 ML SYRINGE. SQ SCH (08:15)
[2020-12-20] MEDS: guaiFENesin/CODEINE 100mg/10mg 5 ML LIQUID PO PRN (08:15)
--- NOTE | 2020-12-20 08:23 | PDOC3 ---
Discharge Summary Visit Information Date of Admission: Dec 18, 2020 Date of Discharge: Dec 20, 2020 Final Diagnosis syncope, r.o cardiogenic on tele 23 hours Prior COVID infection, still having weakness, cough symptoms, POST COVID syndrome symptoms consistent with "long hauler" COVID at this time, Problems Medical Problems: (1) Elevated d-dimer Status: Acute (2) Syncope Status: Acute Brief Hospital Course Allergies Allergies Coded Allergies Type Severity Reaction Last Updated Verified No Known Drug Allergies 12/18/20 No Vital Signs Vital Signs Date Time Temp Pulse Resp B/P (MAP) Pulse Ox O2 Delivery O2 Flow Rate FiO2 12/20/20 07:00 98.0 89 21 112/59 (76) 100 Room Air 98.0 Lab Results Laboratory Tests Test 12/18/20 18:38 12/18/20 22:53 White Blood Count 4.9 x10^3/uL (4.0-11.0) Red Blood Count 4.78 x10^6/uL (4.30-5.70) Hemoglobin 15.3 g/dL (13.0-17.5) Hematocrit 44.4 % (39.0-53.0) Mean Corpuscular Volume 93 fL (79-100) Mean Corpuscular Hemoglobin 32 pg (25-35) Mean Corpuscular Hemoglobin Concent 34 g/dL (31-37) Red Cell Distribution Width 13.7 % (11.5-14.5) Platelet Count 144 x10^3/uL (140-400) Neutrophils (%) (Auto) 61 % (31-73) Lymphocytes (%) (Auto) 30 % (24-48) Monocytes (%) (Auto) 6 % (0-9) Eosinophils (%) (Auto) 2 % (0-3) Basophils (%) (Auto) 0 % (0-3) Neutrophils # (Auto) 3.0 x10^3/uL (1.8-7.7) Lymphocytes # (Auto) 1.5 x10^3/uL (1.0-4.8) Monocytes # (Auto) 0.3 x10^3/uL (0.0-1.1) Eosinophils # (Auto) 0.1 x10^3/uL (0.0-0.7) Basophils # (Auto) 0.0 x10^3/uL (0.0-0.2) Prothrombin Time 13.1 SEC (11.7-14.0) Prothromb Time International Ratio 1.0 (0.8-1.1) Activated Partial Thromboplast Time 30 SEC (24-38) D-Dimer ([place]) 0.54 ug/mlFEU (0.00-0.50) Sodium Level 143 mmol/L (136-145) Potassium Level 3.6 mmol/L (3.5-5.1) Chloride Level 105 mmol/L (98-107) Carbon Dioxide Level 30 mmol/L (21-32) Anion Gap 8 (6-14) Blood Urea Nitrogen 9 mg/dL (8-26) Creatinine 0.9 mg/dL (0.7-1.3) Estimated GFR (Cockcroft-Gault) 88.3 BUN/Creatinine Ratio 10 (6-20) Glucose Level 96 mg/dL (70-99) Calcium Level 8.4 mg/dL (8.5-10.1) Magnesium Level 2.0 mg/dL (1.8-2.4) Total Bilirubin 0.7 mg/dL (0.2-1.0) Aspartate Amino Transf (AST/SGOT) 19 U/L (15-37) Alanine Aminotransferase (ALT/SGPT) 36 U/L (16-63) Alkaline Phosphatase 62 U/L (46-116) Creatine Kinase 168 U/L (39-308) Creatine Kinase MB (Mass) < 0.5 ng/mL (0.0-3.6) Creatine Kinase MB Relative Index % (0-4) Troponin I Quantitative < 0.017 ng/mL (0.000-0.055) Total Protein 7.9 g/dL (6.4-8.2) Albumin 4.1 g/dL (3.4-5.0) Albumin/Globulin Ratio 1.1 (1.0-1.7) Urine Collection Type Unknown Urine Color Yellow Urine Clarity Clear Urine pH 6.5 (<5.0-8.0) Urine Specific [place] 1.015 (1.000-1.030) Urine Protein Negative mg/dL (NEG-TRACE) Urine Glucose (UA) Negative mg/dL (NEG) Urine Ketones (Stick) Negative mg/dL (NEG) Urine Blood Negative (NEG) Urine Nitrite Negative (NEG) Urine Bilirubin Negative (NEG) Urine Urobilinogen Dipstick 1.0 mg/dL (0.2 mg/dL) Urine Leukocyte Esterase Negative (NEG) Urine RBC 0 /HPF (0-2) Urine WBC 0 /HPF (0-4) Urine Bacteria 0 /HPF (0-FEW) Urine Mucus Slight /LPF Brief Hospital Course Mr. 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 Prior COVID ,and not recovered, he cannot tolerate work as a meat team member currently, it is too hard and too cold in there. ECHO The left ventricular systolic function is normal. The Ejection Fraction is 55-60%. There is normal LV segmental wall motion. Transmitral Doppler flow pattern is Grade I-abnormal relaxation pattern. Trace to mild tricuspid regurgitation. The PA pressure was estimated at 25 mmHg. The ascending aorta is dilated at 3.9 cm. There is no evidence of significant pericardial effusion. Discharge Information Condition at Discharge: Improved Follow Up: Weeks Disposition/Orders: D/C to Home Scheduled PRN Guaifenesin/Codeine Phosphate (Codeine-Guaifen 10-100 mg/5 ml) 120 Ml Liquid, 5 ML PO PRN Q6HRS PRN for COUGH, #80 Prescribed by: ERIN GARCIAS on 12/20/20 0810 Miscellaneous Medications [No Home Meds] , (Reported) Entered as Reported by: Leticia Renee on 12/19/20311 Last Action: New Order on 12/19/20311 by Leticia Renee Justicifation of Admission Dx: Justifications for Admission: Justification of Admission Dx: ERIN Rojas MD Dec 20, 2020 08:23
[2020-12-20 10:53] VITALS: BP 184/84
[2020-12-20 11:00] VITALS: BP 121/70
--- NOTE | 2020-12-20 13:59 | PDOC ---
CARDIO Progress Notes Date and Time Date of Service 12/20/20 Time of Evaluation 1210 Subjective Subjective: No Chest Pain, No shortness of breath, No Palpitations, No Dizziness Vitals Vitals Vital Signs Date Time Temp Pulse Resp B/P (MAP) Pulse Ox O2 Delivery O2 Flow Rate FiO2 12/20/20 11:00 72 20 121/70 (87) 100 Room Air 12/20/20 10:53 98.2 98.2 Weight Weight [ ] Input and Output Intake and Output Intake and Output 12/20/20 07:00 Intake Total 1260 ml Balance 1260 ml Intake Oral 1260 ml # Voids 2 Physical Exam HEENT: Neck Supple W Full Motion Chest: Symmetric LUNGS: Clear to Auscultation Heart: RRR Abdomen: Soft N/T Extremities: No Edema Neurology: alert, oriented, follow commands Assessment Assessment 1. Syncope; no acute event on tele overnight. EKG shows SR with early repolarization. Echo with preserved LV systolic function. No clear cardiac source 2. Recent COVID with persistent dry cough and weakness 3. Ascending aortic aneurysm; 3.9 cm. per echo Recommendations Consider outpatient event monitor Okay to discharge from a CV standpoint Justicifation of Admission Dx: Justifications for Admission: Justification of Admission Dx: RAMÍREZ Alcazar APRN Dec 20, 2020 13:59
== END 2020-12-20 14:52 | disposition home or self-care (01) | DRG 312 ==
LOC: ER 17:28 → 6 SOUTH 21:45
PROVIDERS: ADMIT Internal Medicine; ATTEND Internal Medicine
DX: R55 Syncope and collapse (principal); J98.11 Atelectasis; R07.89 Other chest pain; Z86.16 Personal history of COVID-19; Z79.899 Other long term (current) drug therapy
CPT/HCPCS: 36415; 70450; 71045; 71275; 80053; 81001; 82553; 83735; 84484; 85025; 85379; 85610; 85730; 93005; 93306; 96360; J1650; J7030; Q9967; 99285-25; G0378